=== PATIENT | male | born 1980 | race Caucasian/White ===

== ENCOUNTER 2021-04-07 14:42 | Emergency (ER) | payer BC ==
[~2021-04-07] VITALS: Ht 188 cm; Wt 88.5 kg
--- NOTE | 2021-04-07 14:51 | NUR ---
TO ER BED 2, BIBRA 38 FROM HOME C/O PALPITATION AND WEAKNESS AFTER TAKING CBD OIL, AAOX3, BREATHING EVEN AND NON LABORED, CONNECTED TO MONITOR, EKG DONE
[2021-04-07 15:36] LABS: BASOPHILS % (AUTO) 0.7 % (0.0-2.0); EOSINOPHILS % (AUTO) 2.2 % (0.0-6.0); HEMATOCRIT 42 % (39-51); HEMOGLOBIN 14.4 g/dL (13.5-17.5); LYMPHOCYTES # (AUTO) 1.5 K/uL (0.8-4.8); LYMPHOCYTES % (AUTO) 34.2 % (20.0-44.0); MEAN CORPUSCULAR HGB CONC 34 g/dl (31.0-36.0); MEAN CORPUSCULAR VOLUME 95 fL (80-96); MONOCYTES # (AUTO) 0.7 K/uL (0.1-1.30); MONOCYTES % (AUTO) 17.2 % (2.0-12.0); NEUTROPHILS % (AUTO) 45.7 % (43.0-81.0); PLATELET COUNT (AUTO) 189 K/uL (150-450); RED BLOOD CELL COUNT(AUTO) 4.43 MIL/uL (4.5-6.0); WHITE BLOOD COUNT (AUTO) 4.3 K/uL (4.3-11.0)
--- NOTE | 2021-04-07 15:54 | NUR ---
UNABLE TO PROVIDE URINE AT THIS TIME
[2021-04-07 15:56] LABS: CALCIUM, SERUM 8.5 mg/dL (8.5-10.1); CARBON DIOXIDE 29 mmol/L (21-32); CHLORIDE 102 mmol/L (98-107); CREATININE 1.4 mg/dL (0.6-1.3); GLUCOSE 98 mg/dL (74-106); POTASSIUM 4.1 mmol/L (3.5-5.1); SODIUM SERUM 139 mmol/L (136-145); UREA NITROGEN, BLOOD 18 mg/dL (7-18)
[2021-04-07] MEDS ORDERED: IV NS 0.9% 500 ML BAG IV ONE (16:00)
--- NOTE | 2021-04-07 16:50 | NUR ---
URINE COLLECTED AND SENT TO LAB
[2021-04-07] MEDS ORDERED: IV NS 0.9% 1,000 ML BAG IV ONE (17:00)
[2021-04-07] MEDS ORDERED: LORAZEPAM 1 MG TABLET PO ONE (18:30)
--- NOTE | 2021-04-07 18:47 | NUR ---
IV removed. Catheter intact and site benign. Pressure and 4x4 applied to site. No bleeding noted.Patient discharged to home in stable condition. Written and verbal after care instructions given. Patient verbalizes understanding of instruction.
[2021-04-07 18:48] VITALS: BP 130/75
[2021-04-07 22:45] LABS: LYMPHOCYTES % (MANUAL) 41 % (16-48); MONOCYTES % (MANUAL) 11 % (0-11.0); NEUTROPHILS % (MANUAL) 48 (42-76)
== END 2021-04-07 18:48 | disposition home or self-care (01) ==
LOC: ER 15:34
DX: F41.9 Anxiety disorder, unspecified (principal)
CPT/HCPCS: 36415; 71045; 80048; 80307; 84443; 84484; 85007; 85025; 93005 ×2; 96360; 99285; J7030